=== PATIENT | male | born 1950 | race Caucasian/White ===

== ENCOUNTER 2018-07-03 10:35 | Emergency (ER) | payer MEDICARE, OTHER ==
[~2018-07-03] VITALS: Ht 172.7 cm; Wt 88.9 kg
[2018-07-03 10:53] LABS: BASOPHILS # (AUTO) 0.1 /CMM (0.0-0.2); BASOPHILS % (AUTO) 0.8 % (0.0-2.0); EOSINOPHILS % (AUTO) 0.1 % (0.0-6.0); HEMATOCRIT 43 % (39-51); HEMOGLOBIN 13.5 g/dL (13.5-17.5); LYMPHOCYTES % (AUTO) 18.1 % (20.0-44.0); MEAN CORPUSCULAR HGB CONC 32 g/dl (31.0-36.0); MEAN CORPUSCULAR VOLUME 92 fL (80-96); MONOCYTES # (AUTO) 0.9 /CMM (0.1-1.30); MONOCYTES % (AUTO) 5.2 % (2.0-12.0); NEUTROPHILS # (AUTO) 12.4 /CMM (1.8-8.9); NEUTROPHILS % (AUTO) 75.8 % (43.0-81.0); PLATELET COUNT (AUTO) 214 /CMM (150-450); RED BLOOD CELL COUNT(AUTO) 4.69 MIL/uL (4.5-6.0); WHITE BLOOD COUNT (AUTO) 16.4 K/uL (4.3-11.0)
[2018-07-03] MEDS ORDERED: IV NS 0.9% 1,000 ML BAG IV ONE (11:00)
[2018-07-03] MEDS ORDERED: SODIUM BICARBONATE SYR 50 MEQ/50 ML DISP.SYRIN IV ONE (11:00)
[2018-07-03] MEDS ORDERED: EPINEPHRINE (1:10,000) SYRINGE 1 MG/10 ML DISP.SYRIN IVP ONE (11:00)
[2018-07-03] MEDS ORDERED: CALCIUM CHLORIDE 1,000 MG/10 ML DISP.SYRIN IV ONE (11:00)
--- NOTE | 2018-07-03 11:01 | NUR ---
[facility] CALLED,SPOKE WITH IRENE,FACESHEET AND EKG FAXED
[2018-07-03 11:06] LABS: ALBUMIN 3.5 g/dL (3.4-5.0); BILIRUBIN,DIRECT 0.3 mg/dL (0.0-0.2); BILIRUBIN,TOTAL 0.8 mg/dL (0.2-1.0); CREATININE 5.5 mg/dL (0.6-1.3); POTASSIUM 5.1 mmol/L (3.5-5.1); TOTAL PROTEIN, SERUM 7.2 g/dL (6.4-8.2)
--- NOTE | 2018-07-03 11:29 | NUR ---
PT BROUGHT IN WITH FAMILY FOR FEELING DIZZY ACCORDING TO STAFF PT UPON BEING PLACED IN BED WAS ALERT UNABLE TO PERFORM NISSH AT 1050 PT BECAME UNRESPONSIVE CALLED CODE STARTED SEE CODE SHEET
--- NOTE | 2018-07-03 11:30 | NUR ---
RT NOTE UPON ARRIVAL, CPR ALREADY INTITIATED @1050. PT ORALLY INTUBATED VIA ETT #7.5 AND SECURED AT 23CM AT THE LIP @1052. CLEAR BILATERAL BREATH SOUNDS HEARD AND CONFIRMED PER DR DOMINGO. CONDENSATION SEEN IN ETT TUBE AND 96% O2 SATURATION POST INTUBATION NOTED. ROSC ACHIEVED @ 1055. CODE BLUE CALLED AGAIN @1101 AND ROSC ACHEIVED @1102. PT CODED AGAIN @1107 AND PT @1124.
--- NOTE | 2018-07-03 11:44 | NUR ---
Guy heredia in ED - 07/03/18 at 1214 by JEREMIAH NO EKG COMPLETED DUE TO [place].
[2018-07-03 16:48] VITALS: BP 163/151
== END 2018-07-03 16:48 | disposition expired ==
LOC: ER 10:40
DX: I46.9 Cardiac arrest, cause unspecified (principal); I10 Essential (primary) hypertension; E11.9 Type 2 diabetes mellitus without complications; R42 Dizziness and giddiness; N28.9 Disorder of kidney and ureter, unspecified; Z98.890 Other specified postprocedural states
CPT/HCPCS: 31500; 36415; 80048; 80076; 82010; 82962; 84484; 85025; 92950; 93005; 96360; 99291; A4606; J0171; J3490 ×2; J7030